=== PATIENT | male | born 1940 | race Caucasian/White ===

== ENCOUNTER → 2020-04-19 | Outpatient (CLI) | payer MEDICARE | LOC: M.MRI 06:57 | DX: S83.241A Other tear of medial meniscus, current injury, right knee, initial encounter (principal); M17.11 Unilateral primary osteoarthritis, right knee; M25.461 Effusion, right knee; X58.XXXA Exposure to other specified factors, initial encounter; Y93.89 Activity, other specified; Y92.89 Other specified places as the place of occurrence of the external cause; Y99.8 Other external cause status ==

== ENCOUNTER 2020-05-08 06:58 | Inpatient (IN) | payer MEDICARE ==
[2020-05-01 12:04] LABS: HEMATOCRIT 34.3 % (42.0-52.0); HEMOGLOBIN 11.6 gm/dL (14.0-18.0); MCH 32.2 pg (26.0-34.0); MCHC 33.9 g/dL (28.0-37.0); MPV 6.9 fl. (7.2-11.1); RBC 3.61 mil/uL (4.50-6.00); RDW-CV 14.3 % (10.5-14.5); WBC 5.9 thou/uL (4.0-11.0)
[2020-05-01 12:05] LABS: URINE BILIRUBIN NEGATIVE (Negative); URINE BLOOD NEGATIVE (Negative); URINE CLARITY CLEAR; URINE COLOR YELLOW; URINE GLUCOSE-RANDOM NEGATIVE (Negative); URINE KETONES NEGATIVE (Negative); URINE LEUKOCYTES-REFLEX NEGATIVE (Negative); URINE NITRITE-REFLEX NEGATIVE (Negative); URINE PROTEIN NEGATIVE (Negative); URINE UROBILINOGEN 0.2 E.U./dl (0.2-1.0)
[2020-05-01 12:10] LABS: PROTIME 10.4 Seconds (9.20-11.50)
[2020-05-01 12:15] LABS: ALBUMIN 3.6 g/dL (3.4-5.0); CALCIUM 8.5 mg/dL (8.5-10.1); CREATININE 1.8 mg/dL (0.6-1.3); POTASSIUM 4.3 mmol/L (3.5-5.1); TOTAL BILIRUBIN 0.6 mg/dL (<0.1-1.0); TOTAL PROTEIN 7.1 g/dL (6.4-8.2)
--- NOTE | 2020-05-01 13:33 | EKG ---
[place] [address] ELECTROCARDIOGRAM REPORT Name: WILVER DOTSON Room: PRE IN [facility]#: [id number] Admission: Attend Phys: Enrique Pablo Discharge: Date of : 44 Date of Service: 05/01/20 1216 Report #: [id number] THIS REPORT FOR: //name// [facility] Test Date: 2020-05-01 Test Time: 12:16:40 Pat Name: WILVER HARDYJOSÉ MIGUEL Department: Room: Gender: Credit Specialist: : 1940 Requested By: Vik Beasley Order Number: [id number] MD: Vitaly Harvey Measurements Intervals [place] Rate: 62 P: 12 SD: 254 QRS: -58 QRSD: 115 T: 87 QT: 459 QTc: 467 Interpretive Statements Sinus rhythm Prolonged SD interval Incomplete left bundle branch block Probable left ventricular hypertrophy No previous ECG available for comparison Electronically Signed On 05-01-2020 13:31:08 CDT by Vitaly Harvey [email or web address] <ELECTRONICALLY SIGNED> By: Vitaly Harvey MD, [facility] 05/01/20 1331 15 Vitaly Harvey MD, FAC /EPI
[~2020-05-08] VITALS: Ht 175.3 cm; Wt 95.3 kg
[~2020-05-08 06:58] MED LIST: BREO ELLIPTA 11 EACH INH; CARDURA1 MG PO; CARVEDILOL25 MG PO; LEFLUNOMIDE 1010 MG PO; LIPITOR40 MG PO; SPIRIVA RESPIMAT4 G1 INH; ZESTRIL5 MG PO
[2020-05-08 11:07] VITALS: BP 146/67
[2020-05-08 18:12] VITALS: BP 135/105
[2020-05-08 20:15] VITALS: BP 137/78
[2020-05-09] VITALS: BP 140/60
[2020-05-09 04:00] VITALS: BP 130/53
--- NOTE | 2020-05-09 04:08 | NUR ---
RESTING WELL THROUGHOUT HOURLY ROUNDS, PAIN MEDICATION GIVEN X1 , VOIDING PER URINAL.RIGHT KNEE DRESSING DRY AND INTACT. WILL CONTINUE WITH PRESENT PROTOCOL.
[2020-05-09 06:00] LABS: HEMATOCRIT 30.1 % (42.0-52.0)
[2020-05-09 07:30] VITALS: BP 132/49
[2020-05-09] MEDS ORDERED: PERCOCET PO (08:34)
[2020-05-09] MEDS ORDERED: XARELTO10 MG PO (08:34)
--- NOTE | 2020-05-09 10:46 | OP ---
[facility] [address] [place] [address] OPERATIVE REPORT Name: WILVER DOTSON Room: [address] IN .R.#: [id number] Admission: 05/08/20 Attend Phys: Jean Claude Kiser Discharge: Date of : 44 Report #: [id number] THIS REPORT FOR: //name// cc: Richie Ca MD, Matthew S. MD ~ THIS REPORT FOR: //name// CC: Richie Pablo DATE OF SERVICE: 05/08/2020 PREOPERATIVE DIAGNOSIS: Right knee osteoarthritis. POSTOPERATIVE DIAGNOSIS: Right knee osteoarthritis. PROCEDURE: Right total knee arthroplasty. SURGEON: Vik Beasley II, DO DIRECTOR OF [employer]: LINDA Umanzor ANESTHESIA: General endotracheal. ESTIMATED BLOOD LOSS: 50 mL. ANTIBIOTICS: Ancef preoperatively. DRAINS: Medium Hemovac. COMPLICATIONS: None. CONDITION OF THE PATIENT: Stable to recovery room. IMPLANTS: Listed in the operative record and progress note. BRIEF HISTORY: The patient was seen in the preoperative area. Preoperative H and P was performed. Site was marked, questions were answered. Risks and benefits were discussed with the patient in detail about surgery. The patient wished to proceed, assuming all risks. DESCRIPTION OF PROCEDURE: The patient was taken to the operative suite and placed supine on the OR table, given appropriate anesthesia. The patient had a well-padded tourniquet applied to upper thigh, which was inflated to 300 mmHg after gravity exsanguination. The operative knee [place] [address] OPERATIVE REPORT Name: WILVER DOTSON Radha Room: [address] IN M.R.#: [id number] Admission: 05/08/20 Attend Phys: Jean Claude Kiser Discharge: Date of : 44 Report #: [id number] draped. Surgery began by midline incision. This was carried down to the subcutaneous tissues. A medial parapatellar arthrotomy was performed and carried down to bone. Patella was then everted and excess soft tissues were removed from around the femur. Femoral cutting block was then applied, checked with drop fabiano for rotational alignment, pinned in appropriate position and appropriate cuts were made. A 4-in-1 cutting block was then applied, checked for rotational alignment, pinned in appropriate position and appropriate cuts were made. The tibia was then exposed. Excess meniscus was removed. Retractor was placed on collateral ligaments. Tibial cutting block was then applied, pinned in appropriate position, checked with a drop fabiano for rotational alignment and slope and appropriate cut was made. The tibial bone was removed. The tibial base plate was then applied, checked for rotational alignment with the drop fabiano and pinned in appropriate position. The femur was then applied and box cut was reamed. This was then trialed with appropriate spacer, which showed excellent fit and fill and excellent stability through all range of motion. The patella was reamed in appropriate fashion and sized to appropriate size. Three peg holes were drilled and it was then trialed and showed excellent flexion and extension, excellent tracking of the patella within the groove. These trials were then removed. The tibia was punched in appropriate fashion. Bone ends were cleansed with Pulsavac irrigation and cement was mixed and applied to final implants. These were then malleted into position and held the knee in extension and compressed to allow cement to cure. After it cured, excess was removed utilizing a [place] and osteotome. Wound was then copiously irrigated and the final spacer was then malleted into position. The tourniquet was deflated. Hemostasis was maintained with electrocautery. Pain cocktail was injected. PRP gel was sprayed through internal aspects of the knee. Medium Hemovac drain was applied. Capsule was closed with #2 FiberWire and #1 Vicryl in [id number] fashion. Skin was closed with 2-0 Vicryl and running 3-0 Monocryl. Dermabond and sterile dressing applied. Dave wrap and PolarCare applied. The patient transported to recovery room in stable condition. Counts were correct throughout the procedure. <ELECTRONICALLY SIGNED> By: Vik Beasley II, DO 05/09/20 1046 0801 [id number] Beasley II, DO /nt
[2020-05-09 11:08] VITALS: BP 132/49
--- NOTE | 2020-05-09 11:51 | NUR ---
SPOKE WITH PT. HE WAS ALERT AND ORIENTED. HE LIVES WITH HIS . SHE WILL BE ABLE TO ASSIST HIM NEEDED AT HOME. HE HAS A FRONT WHEEL WALKER AT HOME. HE FEELS READY TO GO HOME TODAY. HE CHOSE [facility] . CM WILL MAKE REFERRAL AND FAX DISCHARGE ORDERS TO [facility]. DISCUSSED CPM AND POLAR PACK. CM CALLED PRESCRIPTION INTO HIS PHARMACY WRITTEN. COPAY IS $38.88. HE SAID HE COULD AFFORD THIS. WILL COME TO PICK HIM UP THIS AFTERNOON.
[2020-05-09 12:00] VITALS: BP 163/61
--- NOTE | 2020-05-09 16:42 | NUR ---
ASSUMED CARE OF PATIENT AT APPROX 0730. ALERT AND ORIENTED X4. ASSESSMENT COMPLETED AND CHARTED. VSS ON ROOM AIR. PAIN MANAGED WITH ORAL NORCO AND OXY. ANTIBIOTIC INFUSED ORDERED THEN SALINE LOCKED. PATIENT UP WITH GAIT BELT AND WALKER TO THE BATHROOM AND WITH THERAPIES. PATIENT DISCHARGED WITH ALL PERSONAL BELONGINGS, PRESCRIPTIONS AND DISCHARGE INFORMATION.
== END 2020-05-09 14:30 | disposition home health service (06) | DRG 470 ==
LOC: M.PRE → M.TBA 10:02 → M.ORTHSURG 10:02 → M.PRE 11:27 → M.ORTHSURG 17:24
PROVIDERS: Orthopaedic Surgery; ADMIT Internal Medicine; ATTEND Internal Medicine
PROC: 0SRC0J9 Replacement of Right Knee Joint with Synthetic Substitute, Cemented, Open Approach (ICD-10-PCS; principal; 2020-05-08)
PROC: 3E0T3BZ Introduction of Anesthetic Agent into Peripheral Nerves and Plexi, Percutaneous Approach (ICD-10-PCS; 2020-05-08)
DX: M17.11 Unilateral primary osteoarthritis, right knee (principal); D62 Acute posthemorrhagic anemia; I10 Essential (primary) hypertension; I25.10 Atherosclerotic heart disease of native coronary artery without angina pectoris; E78.5 Hyperlipidemia, unspecified; E11.9 Type 2 diabetes mellitus without complications; J44.9 Chronic obstructive pulmonary disease, unspecified; Z96.652 Presence of left artificial knee joint; Z79.899 Other long term (current) drug therapy; Z85.118 Personal history of other malignant neoplasm of bronchus and lung; Z87.891 Personal history of nicotine dependence; Z92.21 Personal history of antineoplastic chemotherapy; Z03.818 Encounter for observation for suspected exposure to other biological agents ruled out